=== PATIENT | female | born 1960 | race Caucasian/White ===

== ENCOUNTER 2023-06-10 09:21 | Day surgery (SDC) | payer SELFPAY ==
[~2023-06-10] VITALS: Ht 177.8 cm; Wt 85.3 kg
[2023-06-10] MEDS ORDERED: ESCI20 (09:48)
[2023-06-10] MEDS ORDERED: ANASTROZOLE1 M7 PO (09:48)
[2023-06-10] MEDS ORDERED: EUTHYROX75 MC1 (09:48)
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
[2023-06-10 11:38] VITALS: BP 128/89
== END 2023-06-10 11:44 | disposition home or self-care (01) ==
LOC: ORSCSDS 09:21
PROVIDERS: Internal Medicine Gastroenterology
PROC: 0DJD8ZZ Inspection of Lower Intestinal Tract, Via Natural or Artificial Opening Endoscopic (ICD-10-PCS; principal; 2023-06-10 10:30)
DX: Z12.11 Encounter for screening for malignant neoplasm of colon (principal); Z80.0 Family history of malignant neoplasm of digestive organs; K64.4 Residual hemorrhoidal skin tags; E03.9 Hypothyroidism, unspecified; Z79.899 Other long term (current) drug therapy
CPT/HCPCS: J2704; J7120